=== PATIENT | male | born 1960 ===

== ENCOUNTER → 2017-02-04 | Outpatient (CLI) | payer OTHER | LOC: BMCIMAGING 09:26 | PROVIDERS: ATTEND Physician Assistant | DX: M19.011 Primary osteoarthritis, right shoulder (principal); Z47.89 Encounter for other orthopedic aftercare ==

== ENCOUNTER → 2018-01-25 | Outpatient (CLI) | payer OTHER | LOC: BMCIMAGING 15:12 | PROVIDERS: ATTEND Podiatrist Foot & Ankle Surgery | DX: M77.31 Calcaneal spur, right foot (principal); M77.32 Calcaneal spur, left foot; M20.12 Hallux valgus (acquired), left foot; M25.871 Other specified joint disorders, right ankle and foot ==